=== PATIENT | male | born 1975 | race Caucasian/White ===

== ENCOUNTER 2021-01-10 19:16 | Emergency (ER) | payer OTHER ==
[~2021-01-10] VITALS: Ht 198.1 cm; Wt 102.1 kg
[2021-01-10] MEDS ORDERED: ATORVASTATIN CA20 MG PO (19:30)
[2021-01-10] MEDS ORDERED: LISI20 PO (19:30)
[2021-01-10] MEDS ORDERED: FENO160 PO (19:30)
[2021-01-10] MEDS ORDERED: IBUP800 PO (20:50)
== END 2021-01-10 21:07 | disposition home or self-care (01) ==
LOC: ER 19:16
DX: S80.12XA Contusion of left lower leg, initial encounter (principal); S60.511A Abrasion of right hand, initial encounter; S90.511A Abrasion, right ankle, initial encounter; M54.50 Low back pain, unspecified; I10 Essential (primary) hypertension; Z79.899 Other long term (current) drug therapy; V89.2XXA Person injured in unspecified motor-vehicle accident, traffic, initial encounter
CPT/HCPCS: 36415; 71101; 73030; 73100; 73120; 73590; 73600; 90471; 90714; 96374; 99284-25; J1885

== ENCOUNTER → 2022-05-12 | Outpatient (CLI) | payer OTHER ==
[~2022-05-12] MED LIST: ATORVASTATIN CA20 MG PO; FENO160 PO; IBUP800 PO; LISI20 PO
== END | disposition home or self-care (01) ==
LOC: LAB SHORT 08:59
PROVIDERS: Internal Medicine Gastroenterology
DX: K76.0 Fatty (change of) liver, not elsewhere classified (principal)
CPT/HCPCS: 81050

== ENCOUNTER 2022-06-28 20:24 | Emergency (ER) | payer OTHER ==
[~2022-06-28] VITALS: Ht 195.6 cm; Wt 112.5 kg
[2022-06-28 20:29] VITALS: BP 149/90
[2022-06-28] MEDS ORDERED: CEPH500 PO (20:59)
[2022-06-28] MEDS ORDERED: MUPIROCIN1 G1 TOP (20:59)
[2022-06-28] MEDS ORDERED: SULTRIDS PO (20:59)
== END 2022-06-28 21:04 | disposition home or self-care (01) ==
LOC: ER 20:24
DX: L03.211 Cellulitis of face (principal); I10 Essential (primary) hypertension; F17.200 Nicotine dependence, unspecified, uncomplicated
CPT/HCPCS: 99283; A9270

== ENCOUNTER 2022-10-22 07:02 | Day surgery (SDC) | payer OTHER ==
[~2022-10-22] VITALS: Ht 195.6 cm; Wt 109.0 kg
[~2022-10-22 07:02] MED LIST changes: +CEPH500 PO; +MUPIROCIN1 G1 TOP; +SULTRIDS PO
[2022-10-22] MEDS ORDERED: OLME20 (08:23)
[2022-10-22] MEDS ORDERED: ESOM20 (08:24)
[2022-10-22 09:44] VITALS: BP 112/75
--- NOTE | 2022-10-22 09:45 | NUR ---
10/22/22 0945 Karina Faith IV DC'D CATH INTACT. PT TOLERATED WELL. COBAN/GAUZE IN PLACE
== END 2022-10-22 09:45 | disposition home or self-care (01) ==
LOC: ORSCSDS 07:02
PROVIDERS: Specialist
PROC: 0DB68ZX Excision of Stomach, Via Natural or Artificial Opening Endoscopic, Diagnostic (ICD-10-PCS; principal; 2022-10-22 08:45)
PROC: 0DB58ZX Excision of Esophagus, Via Natural or Artificial Opening Endoscopic, Diagnostic (ICD-10-PCS; principal; 2022-10-22 08:45)
PROC: 0DJD8ZZ Inspection of Lower Intestinal Tract, Via Natural or Artificial Opening Endoscopic (ICD-10-PCS; principal; 2022-10-22 08:45)
DX: K21.00 Gastro-esophageal reflux disease with esophagitis, without bleeding (principal); Z12.11 Encounter for screening for malignant neoplasm of colon; K31.7 Polyp of stomach and duodenum; K44.9 Diaphragmatic hernia without obstruction or gangrene; K64.8 Other hemorrhoids; K57.30 Diverticulosis of large intestine without perforation or abscess without bleeding; L53.8 Other specified erythematous conditions; K75.81 Nonalcoholic steatohepatitis (NASH); G47.30 Sleep apnea, unspecified; E78.5 Hyperlipidemia, unspecified; Z79.899 Other long term (current) drug therapy
CPT/HCPCS: 88305; 88342; J2704; J7120

== ENCOUNTER 2024-06-06 18:58 | Emergency (ER) | payer OTHER ==
[~2024-06-06] VITALS: Ht 195.6 cm; Wt 108.9 kg
[~2024-06-06 18:58] MED LIST changes: +ESOM20; +OLME20; +ZOLOFT50 MG PO
[2024-06-06 18:59] VITALS: BP 130/110
[2024-06-06 19:19] LABS: BASOPHILS ABSOLUTE AUTO 0.03 K/mm3 (0.00-0.23); BASOPHILS PERCENT AUTO 0 % (0-2); EOSINOPHILS ABSOLUTE AUTO 0.22 K/mm3 (0.00-0.68); EOSINOPHILS PERCENT AUTO 2 % (0-6); Hematocrit 44.1 % (37.0-53.0); Hemoglobin 15.6 g/dL (13.5-17.5); IMMATURE GRAN ABSOLUTE AUTO 0.02 K/mm3 (0.00-0.10); IMMATURE GRAN PERCENT AUTO 0 % (0-1); LYMPHOCYTES ABSOLUTE AUTO 2.07 K/mm3 (0.84-5.20); LYMPHOCYTES PERCENT AUTO 23 % (21-46); MONOCYTES ABSOLUTE AUTO 0.47 K/mm3 (0.16-1.47); MONOCYTES PERCENT AUTO 5 % (4-13); Mean Corpuscular HGB Conc 35.4 g/dL (31.5-36.5); Mean Corpuscular Volume 90 fL (80-100); Mean Platelet Volume 9.4 fL (9.1-12.4); NEUTROPHILS ABSOLUTE AUTO 6.37 K/mm3 (1.96-9.15); NEUTROPHILS PERCENT AUTO 70 % (41-73); Platelet Count 198 K/mm3 (150-400); RDW Coefficient Variation 13.2 % (11.7-14.2); RDW Standard Deviation 43.5 fL (35.1-46.3); Red Blood Cell Count 4.88 M/mm3 (4.30-5.90); White Blood Cell Count 9.18 K/mm3 (4.00-11.30)
[2024-06-06 19:41] LABS: Albumin, Blood 3.7 g/dL (3.4-5.0); Bilirubin, Total 0.5 mg/dL (0.1-1.0); Bun/Creatinine Ratio 10.6 (12.0-20.0); Calcium, Blood 9.1 mg/dL (8.5-10.1); Creatinine, Blood 0.95 mg/dL (0.60-1.20); Globulin, Blood 3.8 g/dL (2.2-4.0); Potassium, Blood 4.7 mmol/L (3.5-5.5); Total Protein, Blood 7.5 g/dL (6.4-8.2)
== END 2024-06-06 19:33 | disposition left against medical advice (07) ==
LOC: ER 18:58
PROVIDERS: Emergency Medicine
DX: R07.9 Chest pain, unspecified (principal); Z53.21 Procedure and treatment not carried out due to patient leaving prior to being seen by health care provider
CPT/HCPCS: 71046; 80053; 83690; 84484; 85025

== ENCOUNTER 2024-12-08 16:28 | Emergency (ER) | payer OTHER ==
[~2024-12-08] VITALS: Ht 193 cm; Wt 96.2 kg
[2024-12-08 16:58] LABS: BASOPHILS ABSOLUTE AUTO 0.02 K/mm3 (0.00-0.23); BASOPHILS PERCENT AUTO 0 % (0-2); EOSINOPHILS ABSOLUTE AUTO 0.10 K/mm3 (0.00-0.68); EOSINOPHILS PERCENT AUTO 1 % (0-6); Hematocrit 38.1 % (37.0-53.0); Hemoglobin 13.6 g/dL (13.5-17.5); IMMATURE GRAN ABSOLUTE AUTO 0.01 K/mm3 (0.00-0.10); IMMATURE GRAN PERCENT AUTO 0 % (0-1); LYMPHOCYTES ABSOLUTE AUTO 1.59 K/mm3 (0.84-5.20); LYMPHOCYTES PERCENT AUTO 20 % (21-46); MONOCYTES ABSOLUTE AUTO 0.51 K/mm3 (0.16-1.47); MONOCYTES PERCENT AUTO 7 % (4-13); Mean Corpuscular HGB Conc 35.7 g/dL (31.5-36.5); Mean Corpuscular Volume 92 fL (80-100); NEUTROPHILS ABSOLUTE AUTO 5.61 K/mm3 (1.96-9.15); NEUTROPHILS PERCENT AUTO 72 % (41-73); NRBC ABSOLUTE 0.00 K/mm3 (0.00-0.02); NRBC Auto 0.0 /100 WBC (0.0-0.2); Platelet Count 235 K/mm3 (150-400); RDW Coefficient Variation 12.2 % (11.7-14.2); RDW Standard Deviation 40.9 fL (35.1-46.3)
[2024-12-08 17:48] LABS: Alanine Aminotransfer (ALT/SGP 42 U/L (12-78); Albumin, Blood 3.8 g/dL (3.4-5.0); Albumin/Globulin Ratio 1.0 (0.8-1.8); Anion Gap 8 mmol/L (3-11); Aspartate Aminotrans (AST/SGOT 39 U/L (12-37); Bilirubin, Total 0.4 mg/dL (0.1-1.0); Blood Urea Nitrogen 18 mg/dL (8-24); C-REACTIVE PROTEIN, EXT RANGE <0.290 mg/dL (0.000-0.300); CO2, Blood 24 mmol/L (21-32); Calcium, Blood 8.6 mg/dL (8.5-10.1); Chloride, Blood 108 mmol/L (98-108); Creatinine, Blood 0.87 mg/dL (0.60-1.20); Globulin, Blood 3.9 g/dL (2.2-4.0); Glucose, Blood 137 mg/dL (70-99); Potassium, Blood 3.9 mmol/L (3.5-5.5); Sodium, Blood 136 mmol/L (136-145); Total Protein, Blood 7.7 g/dL (6.4-8.2)
[2024-12-08 19:17] VITALS: BP 153/100
[2024-12-08] MEDS ORDERED: EMVERM100 MG PO (21:51)
== END 2024-12-08 22:26 | disposition home or self-care (01) ==
LOC: ER 16:28
PROVIDERS: Student in an Organized Health Care Education/Training Program
DX: B89 Unspecified parasitic disease (principal); Z79.899 Other long term (current) drug therapy
CPT/HCPCS: 80053; 83690; 85025; 85651; 86140; 93005; 93010; 99283-25

== ENCOUNTER → 2025-01-07 | Outpatient (CLI) | payer OTHER ==
[~2025-01-07] MED LIST changes: +EMVERM100 MG PO
== END ==
LOC: LAB SHORT 19:39 → LAB 19:39
DX: A49.02 Methicillin resistant Staphylococcus aureus infection, unspecified site (principal)
CPT/HCPCS: 87070; 87075; 87147; 87205